=== PATIENT | male | born 1940 | race Caucasian/White ===

== ENCOUNTER 2022-01-27 13:57 | Emergency (ER) | payer MEDICARE ==
[2022-01-27 14:40] LABS: BASOPHIL 0.3 % (0-2); EOSINOPHIL 1.2 % (0-7); HCT 45.8 % (42.0-52.0); LYMPHOCYTE 13.7 % (15-48); MCH 31.9 pg (25.0-31.0); MCHC 34.9 g/dL (32.0-36.0); MCV 91.2 fL (78.0-100.0); MONOCYTE 9.7 % (0-12); NEUTROPHIL 74.7 % (41-80); NRBC 0; PLT 186 K/uL (150-400); RBC 5.02 M/uL (4.70-6.00); RDW 11.8 % (11.5-14.0); WBC 10.1 K/uL (4.0-10.5)
[2022-01-27 14:42] LABS: BILIRUBIN NEGATIVE (NEGATIVE); BLOOD 2+ Ery/uL (NEGATIVE); CLARITY CLEAR (CLEAR); COLOR YELLOW (YELLOW); GLUCOSE (U) NORMAL (NORMAL); LEUKOCYTES NEGATIVE Leu/uL (NEGATIVE); NITRITE NEGATIVE (NEGATIVE); PROTEIN NEGATIVE (NEGATIVE); SPECIFIC GRAVITY 1.015 (1.001-1.030); UROBILINOGEN 0.2 mg/dL (0.2-1.0); pH 7.5 (5.0-9.0)
[2022-01-27 14:49] LABS: BACTERIA TRACE; SQUAMOUS EPITHELIAL CELLS RARE
[2022-01-27 14:55] LABS: ALBUMIN 4.4 g/dL (3.4-5.0); BILIRUBIN - TOTAL 0.7 mg/dL (0.2-1.0); BUN/CREAT RATIO (CALC) 14.8 RATIO; CREATININE 1.08 mg/dL (0.67-1.17); GLOBULIN (CALCULATION) 2.9 g/dL; POTASSIUM 4.3 mmol/L (3.5-5.1); TOTAL PROTEIN 7.3 g/dL (6.4-8.2)
[2022-01-27] MEDS ORDERED: FLOMAX0.4 MG PO (16:04)
[2022-01-27] MEDS ORDERED: ONDANSETRON ODT4 MG PO (16:04)
[2022-01-27] MEDS ORDERED: OXY-IR 5MG5 MG PO (16:04)
== END 2022-01-27 16:10 | disposition home or self-care (01) ==
LOC: FER 13:57
PROVIDERS: Emergency Medicine
DX: N13.2 Hydronephrosis with renal and ureteral calculous obstruction (principal); I10 Essential (primary) hypertension
CPT/HCPCS: 36415; 80053; 81001; 85025; J1170; J2405; J7030